=== PATIENT | female | born 1985 | race Caucasian/White ===

== ENCOUNTER 2018-05-02 07:36 | Inpatient (IN) | payer BC ==
[~2018-05-02] VITALS: Ht 170.2 cm; Wt 129.3 kg
[2018-05-02 07:40] VITALS: Ht 170.2 cm; Wt 129.3 kg
[2018-05-02 08:22] LABS: PLATELET COUNT 144 x10^3mcL (130-400)
[2018-05-02 08:23] LABS: BASOPHIL % 0 % (0-2); RED CELL DISTRIBUTION WIDTH 17.4 % (11.5-14.5)
[2018-05-02 08:31] LABS: CALCIUM 8.7 mg/dL (8.5-10.1); CARBON DIOXIDE 25.8 mmol/L (21-32); CHLORIDE SERUM 101 mmol/L (98-107); CREATININE SERUM 0.6 mg/dL (0.6-1.0); GFR1 > 60 mL/min; GLUCOSE SERUM 121 mg/dL (74-106); SODIUM SERUM 136 mmol/L (136-145)
[2018-05-02 08:33] LABS: microscopic required? NO
[2018-05-02 08:35] LABS: ALBUMIN 3.8 g/dL (3.4-5.0); ALKALINE PHOSPHATASE 64 U/L (46-116); ALT/SGPT 32 U/L (14-59); AMYLASE 42 U/L (25-115); AST/SGOT 27 U/L (15-37); LIPASE 63 IU/L (73-393)
[2018-05-02 08:41] LABS: TOTAL PROTEIN, SERUM 8.4 g/dL (6.4-8.2)
[2018-05-02 08:45] LABS: UA SPECIFIC GRAVITY 1.015 (1.005-1.035); urine erythrocyte NEGATIVE (NEGATIVE)
[2018-05-02 11:53] LABS: MAGNESIUM 1.7 mg/dL (1.8-2.4); PHOSPHOROUS 2.2 mg/dL (2.5-4.9)
[2018-05-02 12:02] LABS: CHOLESTEROL/HDL RATIO 3.4
[2018-05-02 17:34] VITALS: BP 131/69
[2018-05-02 20:37] VITALS: BP 138/81
[2018-05-02 22:40] LABS: AMPHETAMINE QUAL UR NONE DETECTED (See below)
[2018-05-03 04:59] VITALS: BP 139/73
[2018-05-03 07:01] LABS: BASOPHIL % 0.2 % (0-2)
[2018-05-03 07:26] LABS: CALCIUM 8.8 mg/dL (8.5-10.1); CARBON DIOXIDE 27.7 mmol/L (21-32); CHLORIDE SERUM 103 mmol/L (98-107); CREATININE SERUM 0.7 mg/dL (0.6-1.0); GFR1 > 60 mL/min; GLUCOSE SERUM 113 mg/dL (74-106); PHOSPHOROUS 3.1 mg/dL (2.5-4.9); POTASSIUM SERUM 3.9 mmol/L (3.5-5.1); SODIUM SERUM 139 mmol/L (136-145)
[2018-05-03 07:39] LABS: PLATELET COUNT 128 x10^3mcL (130-400); RED CELL DISTRIBUTION WIDTH 17.5 % (11.5-14.5)
[2018-05-03 10:51] VITALS: BP 138/83
[2018-05-03 16:45] VITALS: BP 116/64
[2018-05-03 20:41] VITALS: BP 117/59
[2018-05-04 04:17] VITALS: BP 152/92
[2018-05-04 07:09] LABS: CALCIUM 8.5 mg/dL (8.5-10.1); CARBON DIOXIDE 28.7 mmol/L (21-32); CHLORIDE SERUM 104 mmol/L (98-107); CREATININE SERUM 0.7 mg/dL (0.6-1.0); GFR1 > 60 mL/min; GLUCOSE SERUM 97 mg/dL (74-106); MAGNESIUM 1.9 mg/dL (1.8-2.4); PHOSPHOROUS 3.3 mg/dL (2.5-4.9); POTASSIUM SERUM 4.2 mmol/L (3.5-5.1); SODIUM SERUM 139 mmol/L (136-145)
[2018-05-04 09:47] LABS: BASOPHIL % 0.3 % (0-2)
[2018-05-04 09:53] LABS: PLATELET COUNT 124 x10^3mcL (130-400); RED CELL DISTRIBUTION WIDTH 16.3 % (11.5-14.5)
[2018-05-04 12:27] VITALS: BP 134/77
[2018-05-04] MEDS ORDERED: FLA500 PO (12:55)
[2018-05-04 13:28] VITALS: BP 134/77
== END 2018-05-04 14:40 | disposition home or self-care (01) | DRG 233 ==
LOC: ED 07:36 → MU 11:29
PROVIDERS: Emergency Medicine; Surgery; ADMIT Internal Medicine
PROC: 0DTJ4ZZ Resection of Appendix, Percutaneous Endoscopic Approach (ICD-10-PCS; principal; 2018-05-02 15:30)
DX: K35.33 Acute appendicitis with perforation, localized peritonitis, and gangrene, with abscess (principal); E66.01 Morbid (severe) obesity due to excess calories; Z68.42 Body mass index [BMI] 45.0-49.9, adult; Z71.3 Dietary counseling and surveillance
CPT/HCPCS: J0295; J0330; J0690; J2175; J2250; J2270; J2405; J2543; J2704; J2710; J3010; J3490; J7030; J7120; Q0092